=== PATIENT | female | born 1925 | race Caucasian/White ===

== ENCOUNTER 2016-12-07 08:48 | Emergency (ER) | payer MEDICARE, OTHER ==
[2016-12-07 09:13] VITALS: BP 146/84
--- NOTE | 2016-12-07 10:43 | EDM.PDOC ---
ED HPI GENERAL MEDICAL PROBLEM - General Chief Complaint: Neurological Problem Stated Complaint: SYMPTOMS OF TIA Time Seen by Provider: 12/07/16 09:36 Source of Information: Reports: Patient, Family, Old Records, RN Notes Reviewed History Limitations: Reports: No Limitations - History of Present Illness INITIAL COMMENTS - FREE TEXT/NARRATIVE: 89-year-old female presents emergency department today with complaint of difficulty speaking, the event happened about 7:30 this morning lasted for about 30 minutes she describes difficulty with the vision but cannot be specific as to what deficits she was experiencing. She does admit to history of migraines and has had similar episodes in the past with migraine type headaches. At this time she is totally asymptomatic she does have other issues with the recent loss of her has been experiencing some hallucinations current evaluation by her primary care provider feels this is more situational depression has been started on Remeron recently underwent an MRI which demonstrated mild chronic small vessel ischemic change but a left ICA area which is not clearly defined which could possibly represent an aneurysm over that carotid artery recommending dedicated CTA study - Related Data Allergies Allergy/AdvReac Type Severity Reaction Status Date / Time Penicillins Allergy Rash Verified 12/07/16 09:16 Home Meds: Home Meds Aspirin [Adult Low Dose Aspirin EC] 81 mg PO DAILY 12/07/16 [History] Calcium Carbonate [Calcium] 500 mg PO DAILY 12/07/16 [History] Cholecalciferol (Vitamin D3) [Vitamin D3] 2,000 unit PO DAILY 12/07/16 [History] Cyanocobalamin (Vitamin B-12) [Vitamin B-12] 1,000 mcg PO DAILY 12/07/16 [ History] Docusate Sodium [Dulcolax Stool Softener] 100 mg PO BEDTIME 12/07/16 [History] Irbesartan 300 mg PO DAILY 12/07/16 [History] Levothyroxine 75 mcg PO ACBREAKFAST 12/07/16 [History] Mirtazapine [Remeron] 15 mg PO BEDTIME 12/07/16 [History] Omeprazole 20 mg PO DAILY 12/07/16 [History] Pravastatin [Pravachol] 40 mg PO DAILY 12/07/16 [History] Vit A/Vit C/Vit E/Zinc/Copper [Preservision] 1 each PO DAILY 12/07/16 [History] Past Medical History HEENT History: Reports: Cataract, Impaired Vision, Retinal Detachment Cardiovascular History: Reports: High Cholesterol, Hypertension Respiratory History: Reports: Sleep Apnea, Other (See Below) Other Respiratory History: Bronchiopneumonia Gastrointestinal History: Reports: GERD, Hiatal Hernia [employer] History: Reports: Musculoskeletal History: Reports: Back Pain, Chronic, Fracture, Osteoarthritis, Osteoporosis Neurological History: Reports: Migraines Psychiatric History: Reports: Depression Dermatologic History: Reports: Psoriasis - Infectious Disease History Infectious Disease History: Reports: Chicken Pox - Past Surgical History HEENT Surgical History: Reports: Cataract Surgery, Detached Retina GI Surgical History: Reports: Colonoscopy Endocrine Surgical History: Reports: Thyroidectomy Neurological Surgical History: Reports: Vertebroplasty Musculoskeletal Surgical History: Reports: Other (See Below) Other Musculoskeletal Surgeries/Procedures:: Fracture right knee cap Social & Family History - Tobacco Use Smoking Status *Q: Never Smoker - Caffeine Use Caffeine Use: Reports: Coffee - Recreational Drug Use Recreational Drug Use: No ED ROS GENERAL - Review of Systems Review Of Systems: See Below Constitutional: Reports: No Symptoms HEENT: Reports: No Symptoms Respiratory: Reports: No Symptoms Cardiovascular: Reports: No Symptoms GI/Abdominal: Reports: No Symptoms : Reports: No Symptoms (This is) Musculoskeletal: Reports: No Symptoms Skin: Reports: No Symptoms Neurological: Reports: Change in Speech ED EXAM, NEURO - Physical Exam Exam: See Below Text/Narrative:: General: Elderly female, not in any distress, alert and oriented x3 HEENT: head is atraumatic normocephalic, 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 Ears tympanic membranes clear and pham landmarks and light reflex are present bilaterally canals are clear. Nose no septal deviation, nares are clear, no blood present. Mouth mucosa is moist and pink no erythema or exudate noted in soft palate, tongue is midline uvula is midline , dentition is intact. Neck: Supple no thyromegaly no tracheal deviation. Nodes: Cervical nodes subclavicular nodes nontender no palpable lymphadenopathy noted. Lungs: clear to auscultation bilaterally with symmetrical respirations, no adventitious noise appreciated. CV: Regular rate and rhythm S1 and S2 appreciated grade 2/6 systolic ejection murmur, no gallops noted. Abdomen: Soft, nontender, no palpable masses or organomegaly appreciated, no distention no guarding bowel sounds are present, . Neuro: Cranial nerves II through XII grossly intact, power is 5 out 5 in upper and lower extremities, patellar reflex, biceps reflex +2 can do finger to nose without difficulty no dysdiadochokinesis no difficulty with rapid alternating movements can do [id number] without difficulty Romberg is negative, has adequate gait no cerebellar dysfunction no focal neurologic deficit Skin: Warm and dry, intact Extremities: No lower extremity edema appreciated, Course - Vital Signs Last Recorded V/S: Last Vital Signs Temp 95.9 F 12/07/16 10:01 Pulse 68 12/07/16 10:01 Resp 16 12/07/16 10:01 BP 146/84 H 12/07/16 10:01 Pulse Ox 96 12/07/16 10:01 Departure - Departure Time of Disposition: 10:51 Disposition: Home, Self-Care 01 Condition: Fair Clinical Impression: Dysarthria - Discharge Information Referrals: PCP,None [Primary Care Provider] - Forms: ED Department Discharge Additional Instructions: Please keep your follow-up with your primary care provider, call or return to the emergency department worsening of symptoms - Assessment/Plan Plan: Assessment Acuity = acute Site and laterality = dysarthria, again the patient with known history of hypothyroidism, hypertension and dyslipidemia Etiology = unclear etiology Manifestations = manifestations now resolved Location of injury = Home Lab values = none Plan She recently had an MRI done early part of this week results that show mild chronic small vessel disease as well as an area of rounded focus approximately 8 mm cavernous area of on clear etiology recommended CTA to rule out aneurysm I did review this with her and her daughter they decided to do watchful waiting at this time and are going to follow-up with her primary care provider for further evaluation and declined any further workup at this time she remained asymptomatic while in the emergency department. Patient was in agreement with the plan all questions were answered, they were instructed to return to the emergency department or call for worsening symptoms. This note was dictated using [employer] voice recognition software please call with any questions.
== END 2016-12-07 11:04 | disposition home or self-care (01) ==
LOC: JP.ED 08:48
DX: R47.1 Dysarthria and anarthria (principal); E78.00 Pure hypercholesterolemia, unspecified; I10 Essential (primary) hypertension; K21.9 Gastro-esophageal reflux disease without esophagitis; G43.909 Migraine, unspecified, not intractable, without status migrainosus; Z98.49 Cataract extraction status, unspecified eye; Z88.0 Allergy status to penicillin; Z79.82 Long term (current) use of aspirin; Z79.899 Other long term (current) drug therapy
CPT/HCPCS: 99283; 99284